=== PATIENT | female | born 1995 | race Two or more races ===

== ENCOUNTER 2018-05-01 08:09 | Day surgery (SDC) | payer OTHER ==
--- NOTE | 2018-04-24 | Pre-op HX & Phy Repo 2 SIG ---
DATE OF ADMISSION: 05/01/2018 HISTORY OF PRESENT ILLNESS: This is a 22-year-old female, 0, para 0, who presented to our office for the first time in September 2017. At this time, her main complaints were severe cramps on menstrual periods necessitating taking different pain medication. The patient was placed on control pills in order to bring under control dysmenorrhea; however, no improvement. Ultrasound revealed presence of polycystic ovaries and a cystic structure on the ovaries, more likely represents endometriosis. Due to the fact that the patient's condition getting worse and dysmenorrhea became even more prominent plus she started complaining of lower abdominal pain in between periods, a decision was made to take the patient for laparoscopy. Surgery was discussed with the patient, and all possible side effects and complications were explained as well as the benefits. PREVIOUS MEDICAL HISTORY: Includes bronchial asthma at age 16 or 17. Otherwise, no problems with heart, lungs, liver, or kidneys. HOSPITALIZATIONS: None. SOCIAL HISTORY: Tobacco, does not smoke. Alcohol, does not drink. PAST SURGICAL HISTORY: None. REVIEW OF SYSTEMS: Noncontributory besides complaints mentioned above. PHYSICAL EXAMINATION: GENERAL: Reveals well-developed, well-nourished female, in no acute distress. VITAL SIGNS: Stable. Blood pressure 110/60, respirations 16, and temperature 98.6. SKIN: No lesions. HEENT: Head: Normocephalic and atraumatic. Eyes: Pupils are reactive to light and accommodation. Ears: Tympanic membranes intact. Mouth: Normal , good hygiene. LUNGS: Clear to percussion and auscultation. HEART: Rate and rhythm are regular. S1 and S2. BREASTS: No masses. Nipples without discharge. ABDOMEN: Soft, nontender. Bowel sounds are present. Costovertebral angle is nontender. PELVIC: Revealed Bartholin, urethral, and [place] glands within normal limits. Vulva and vagina, no lesions. Cervix closed. Uterus, normal in size, shape, and position. Adnexa, no masses appreciated. No tenderness. IMPRESSION: 1. Severe dysmenorrhea. 2. Lower abdominal pain. 3. Endometriosis. PLAN: Pelviscopy and hysterectomy. Melanie Quesada M.D. DR: Jessica JOB#: [id number] CC:
--- NOTE | 2018-04-29 03:45 | Pre-op HX & Phy Repo 2 SIG ---
DATE OF ADMISSION: 05/01/2018 HISTORY OF PRESENT ILLNESS: This is a 23-year-old female, 0, para 0, who was seen on the first occasion on April 25 for abdominal pain. At that time, the patient was complaining of left lower abdominal pain, severe cramps on menstrual period, not controlled with control pills and nonsteroidal anti-inflammatory medication. The patient denies pelvic inflammatory disease. The patient denies sexually transmitted diseases. Pap smear is class 1. She does not smoke. She does not drink. PREVIOUS MEDICAL HISTORY: She denies heart disease, lung disease, liver disease. Tobacco, does not smoke. Alcohol, does not drink. Includes recently under control and anemia. SURGERIES: None. REVIEW OF SYSTEMS: Noncontributory besides complaints mentioned above. PHYSICAL EXAMINATION: GENERAL: Reveals well-developed and well-nourished white female, in no acute distress. VITAL SIGNS: Stable. Temperature 98.6, respirations 16, blood pressure 100/60. SKIN: Normal color. No lesions. HEENT: Head normocephalic and atraumatic. Eyes, pupils reactive to accommodation. Ears, tympanic membranes intact. Mouth, good hygiene. NECK: Lymph nodes not palpable. BREASTS: No masses palpable. Nipples without discharge. LUNGS: Clear to percussion and auscultation. HEART: S1 and S2. ABDOMEN: Soft, nontender. Bowel sounds present. Costovertebral angles nontender. PELVIC: Revealed Bartholin, urethral, [place] glands within normal limits. Vulva and vagina, no lesions. Cervix closed. Uterus slightly enlarged. Both adnexal area tender. Pap smear reviewed. Uterus, normal size. Right ovary, chocolate cyst present. Left ovary, multicystic and . LABORATORY DATA: WBC 8.5, RBC 4.2, hemoglobin 13.3, hematocrit 39. She is blood type A-positive. Test of negative. Her studies normal. IMPRESSION: 1. Lower abdominal pain. 2. Severe dyspareunia. 3. Dysmenorrhea. 4. Endometriosis. PLAN: CO2 pelviscopy, cystectomy, and hysteroscopy. Melanie Quesada M.D. DR: Domonique JOB#: [id number] CC:
[~2018-05-01] VITALS: Ht 175.3 cm; Wt 56.7 kg
[2018-05-01] VITALS (11 sets, daily range): BP systolic 97–130; BP diastolic 48–64
[~2018-05-01 08:09] MED LIST: cefOXitin Sod 2 GM in D5W 55 ML IVPB ONE
[2018-05-01] MEDS ORDERED: NKM (08:56)
[2018-05-01] MEDS ORDERED: Ropivacaine 5mg/ml Vial 30ml INJ ONE (09:27)
[2018-05-01] MEDS ORDERED: ProvayBlue 5mg/ml 10ml amp INJ SCH (09:30)
--- NOTE | 2018-05-01 09:46 | Anethesia Preoperative Eval ---
Anesthesia Pre-op PMH/ROS General Date of Evaluation: May 01, 2018 Time of Evaluation: 09:51 Anesthesiologist: Senait ASA Score: ASA 2 Mallampati Score Class I : Soft palate, uvula, fauces, pillars visible Class II: Soft palate, uvula, fauces visible Class III: Soft palate, base of uvula visible Class IV: Only hard plate visible Mallampati Classification: Class I Surgeon: Sangita Diagnosis: Abd Pain Surgical Procedure: Laparoscopic Right Ovarian Cystectomy, CO2 Laser, D&C, Pelviscopy Anesthesia History: none Family History: no anesthesia problems Allergies: Coded Allergies: No Known Allergies (Unverified , 04/30/18) Medications: see eMAR Patient NPO?: Yes Past Medical History Pulmonary: Reports: asthma Gastrointestinal/Genitourinary: Reports: other - IBS Anesthesia Pre-op Phys. Exam Physician Exam Last Vital Signs Date Time Temp Pulse Resp B/P (MAP) Pulse Ox O2 Delivery O2 Flow Rate FiO2 05/01/18 08:52 Room Air 05/01/18 08:42 98.3 75 16 111/62 100 98.3 Constitutional: NAD Neurologic: CN 2-12 intact Cardiovascular: RRR Respiratory: CTA Gastrointestinal: S/NT/ND Airway Exam Mallampati Score: Class I MO: full ROM: full Teeth: intact Anesthesia Pre-op A/P Labs Urine Test Test 05/01/18 08:30 Urine HCG, Qualitative Negative (NEGATIVE) Risk Assessment & Plan Assessment: ASA 2 Plan: GA, SED, GlideScope Go Pre-Antibiotics Dru Gram Ancef IV Given Within 1 Hr of Incision: Yes Time Given: 10:06 Luiz Sapp MD May 01, 2018 09:46
--- NOTE | 2018-05-01 09:47 | Immediate Post-Op Evaluation ---
Immediate Post-Op Evalulation Immediate Post-Op Evalulation Procedure: Laparoscopic Right Ovarian Cystectomy, CO2 Laser, D&C, Pelviscopy Date of Evaluation: May 01, 2018 Time of Evaluation: 12:05 IV Fluids: 500 LR Blood Products: 0 Estimated Blood Loss: 10 Urinary Output: 0 Blood Pressure Systolic: 97 Blood Pressure Diastolic: 48 Pulse Rate: 79 Respiratory Rate: 16 O2 Sat by Pulse Oximetry: 100 Temperature (Fahrenheit): 97.4 Pain Score (1-10): 2 Nausea: No Vomiting: No Complications 0 Patient Status: awake, reacts, patent, extubated, none Hydration Status: adequate Dru Gram Ancef IV Given Within 1 Hr of Incision: Yes Time Given: 10:06 Luiz Sapp MD May 01, 2018 09:47
[2018-05-01] MEDS ORDERED: Dexamethasone 4mg/ml vial ONE (09:57)
[2018-05-01] MEDS ORDERED: Lidocaine 1% MPF 10mg/ml 5ml ONE (09:57)
[2018-05-01] MEDS ORDERED: fentaNYL 100 mcg/2 mL IV ONE ×2 (10:02→12:43)
--- NOTE | 2018-05-01 10:11 | Pre-Procedure Note/Attestation ---
Pre-Procedure Note/Attestation Complete Prior to Procedure Planned Procedure: right Procedure Narrative: Video pelviscopy, Hysteroscopy, D&C, ovarian cystectomy, possible treatment of endometriosis Indications for Procedure Pre-Operative Diagnosis: Pelvic Pain, Right Ovarian Cyst Attestation I attest that I discussed the nature of the procedure; its benefits; risks and complications; and alternatives (and the risks and benefits of such alternatives ), prior to the procedure, with the patient (or the patient's legal district representative). I attest that, if there was a reasonable possibility of needing a blood transfusion, the patient (or the patient's legal district representative) was given the [place] Department of Health Services standardized written summary, pursuant to the [place] Blood Safety Act ([place] Health and Safety Code # 1645, as amended). I attest that I re-evaluated the patient just prior to the surgery and that there has been no change in the patient's H&P, except as documented below:NONE MARIANNA YTAES May 01, 2018 10:11
[2018-05-01] MEDS ORDERED: Glycopyrrolate 0.2mg/ml 1ml Vial ONE (11:20)
--- NOTE | 2018-05-01 11:34 | Pre-Procedure Note/Attestation ---
Pre-Procedure Note/Attestation Indications for Procedure Pre-Operative Diagnosis: Pelvic Pain, Ovarian Cyst Attestation I attest that I discussed the nature of the procedure; its benefits; risks and complications; and alternatives (and the risks and benefits of such alternatives ), prior to the procedure, with the patient (or the patient's legal event sales representative). I attest that, if there was a reasonable possibility of needing a blood transfusion, the patient (or the patient's legal event sales representative) was given the [facility] standardized written summary, pursuant to the [place] Blood Safety Act ([place] Health and Safety Code # 1645, as amended). I attest that I re-evaluated the patient just prior to the surgery and that there has been no change in the patient's H&P, except as documented below: MARIANNA YATES May 01, 2018 11:34
--- NOTE | 2018-05-01 11:37 | Brief Operative Note ---
Immediate Post Operative Note Operative Note Pre-op Diagnosis: Pelvic Pain, Ovarian Cyst Post-op Diagnosis: same as pre-op plus - Bilateral Multiple Ovarian Cysts - PCO Findings: consistent w/pre-op dx studies Surgeon: Marianna Yates MD Optical Glass Etcher: Deborah Oliveira MD Anesthesiologist: Luiz Sapp MD Anesthesia: general Specimen: yes - Rght Ovarian Cyst Complications: none Condition: stable Fluids: LR @ 125 cc/hr Estimated Blood Loss: minimal Implant(s) used?: No - Ovarian Cyst, MARIANNA YATES May 01, 2018 11:37
--- NOTE | 2018-05-01 11:53 | 48 Hour Post Anesthesia Eval ---
Post Anesthesia Evaluation Procedure: Laparoscopic Right Ovarian Cystectomy, CO2 Laser, D&C, Pelviscopy Date of Evaluation: May 01, 2018 Time of Evaluation: 14:13 Blood Pressure Systolic: 102 0: 56 Pulse Rate: 78 Respiratory Rate: 18 Temperature (Fahrenheit): 98.4 O2 Sat by Pulse Oximetry: 100 Airway: patent Nausea: No Vomiting: No Pain Intensity: 2 Hydration Status: adequate Cardiopulmonary Status: Stable Mental Status/LOC: patient returned to baseline Follow-up Care/Observations: 0 Post-Anesthesia Complications: 0 Follow-up care needed: ready to discharge Luiz Sapp MD May 01, 2018 11:53
[2018-05-01] MEDS ORDERED: LR 1000ml 1,000 ML IVLG SCH (12:40)
[2018-05-01] MEDS ORDERED: HYDROcodone/Acetamin 7.5/325 tab ORAL PRN (12:45)
[2018-05-01] MEDS ORDERED: Metoclopramide 10mg/2ml Inj IVP PRN (12:45)
[2018-05-01] MEDS ORDERED: Acetaminophen (Non formulary) 100 ML IV ONE (12:45)
[2018-05-01] MEDS ORDERED: Hydromorphone 0.5mg/0.5ml inj IVP PRN (12:45)
[2018-05-01] MEDS ORDERED: oxyCODONE HCL/Acetaminophen 5/325mg ORAL PRN (12:45)
[2018-05-01] MEDS ORDERED: Ketorolac 30mg Inj IV PRN ×2 (12:45)
[2018-05-01] MEDS ORDERED: LORazepam Inj 2mg/ml 1ml IV PRN (12:45)
[2018-05-01] MEDS ORDERED: Midazolam 2mg/2ml Inj IVP PRN (12:45)
[2018-05-01] MEDS ORDERED: Meperidine 50mg/ml Inj(FOR RIGORS ONLY) IVP PRN (12:45)
[2018-05-01] MEDS ORDERED: Atropine Sulfate 0.4mg/ml inj IVP PRN (12:45)
[2018-05-01] MEDS ORDERED: DiphenhydrAMINE 50mg/ml Inj IVP PRN (12:45)
[2018-05-01] MEDS ORDERED: Norco 5mg/325mg tab ORAL PRN (12:45)
[2018-05-01] MEDS ORDERED: fentaNYL 100 mcg/2 mL IV PRN (12:45)
--- NOTE | 2018-05-07 17:00 | Operative Note - Dictated ---
DATE OF OPERATION: 05/01/2018 PREOPERATIVE DIAGNOSIS: Left ovarian cyst. POSTOPERATIVE DIAGNOSIS: Left ovarian cyst plus polycystic ovary bilaterally. PROCEDURE PERFORMED: 1. Left ovarian cystectomy and bilateral coagulation and resection of polycystic ovary, dilatation and curettage with video hysteroscopy. SURGEON: Jaspal Quesada M.D. PRIMARY SCHOOL TEACHER: Dr. Oliveira. ANESTHESIOLOGIST: Dr. Luiz Sapp. ANESTHESIA TYPE: General endotracheal. PROCEDURE IN DETAIL: After appropriate consents were signed, the patient was brought to the operating room, placed on table in supine position. General endotracheal anesthesia was induced without complication. The patient was then placed in the dorsal lithotomy position. Perineum, vagina, and abdomen were prepped and draped in the usual fashion for the procedure. The patient was then examined under anesthesia and the uterus appeared to be approximately normal-sized and the video hysteroscopy was initiated with the uterine cavity evaluated and both tubal ostia were visualized. There did not appear to be submucosal fibroids or endometrial polyps in the cavity. Hysteroscopy then continued to perform the endocervical curettage and endometrial curettage. After the curettage was performed, the uterine manipulator was placed and the procedure continued at its abdominal portion. An umbilical incision was made. A Veress needle was advanced and the abdomen was insufflated with 15 mmHg pressure. At this time, 10 mm was placed in the umbilicus and 2 additional trocars were placed in the lower abdomen and left lower abdomen. At this time, the procedure continued with evaluating the pelvis. The ovaries were somewhat enlarged, however, the left ovary contained this cystic structure which was being well visualized in the left distal pole of the left ovary. The ovarian capsule was opened and the cyst was extracted using traction-countertraction technique, and pressure on the ovary. Once this cystic structure was completely removed, it was removed from the field to be submitted to pathology for evaluation. The cystic structure appeared fully hemostatic. At this time, the procedure continued with evaluation of the pelvis and complete hemostasis was achieved on the left side. The additional cystic structures that were although smaller, double found in the left ovary. These cystic structures were punctured to assure that no endometrioma or dermoid cysts were identified. The ovary was also evaluated and also found to contain multiple cystic structures. The right ovary was also punctured in multiple areas to ensure that these were fully polycystic ovarian structures. At this time, the pelvis was once again evaluated and found to be within normal limits. There did not appear to be any additional pathology. The patient's abdomen was evaluated while the trocars were removed and the puncture sites were found to be completely hemostatic. The patient's incisions were closed using #0 Vicryl suture at the fascial layer and Steri-Strips and benzoin at the skin layer. She was placed in the supine position and awakened from general anesthesia. She tolerated the procedure very well. Jaspal Quesada M.D. DR: Corrine JOB#: [id number] CC:
== END 2018-05-01 14:00 | disposition home or self-care (01) ==
LOC: SUR 08:09
DX: N83.12 Corpus luteum cyst of left ovary (principal); E28.2 Polycystic ovarian syndrome; J45.909 Unspecified asthma, uncomplicated; K58.9 Irritable bowel syndrome, unspecified
CPT/HCPCS: 58558; 58662; 81025; J0690; J1100; J2175; J2250; J2405; J2795; J3010; 94003; 94150

== ENCOUNTER 2019-10-06 05:02 | Emergency (ER) | payer OTHER ==
[~2019-10-06] VITALS: Ht 177.8 cm; Wt 69.4 kg
[~2019-10-06 05:02] MED LIST changes: +NKM; -cefOXitin Sod 2 GM in D5W 55 ML IVPB ONE
--- NOTE | 2019-10-06 05:20 | NUR ---
ED Nurse Note: Pt ambulated to ED from home c/o painful cyst on labia, pt had it drained on friday at a clinic and was placed on antibiotics. Pt reports pain and swelling has increased. VSS. Pt is A&Ox4.
[2019-10-06 05:22] VITALS: BP 130/67
[2019-10-06] MEDS ORDERED: Lidocaine 1% 10mg/ml/EPI 0.01mg/ml 30ml INJ ONE (05:45)
[2019-10-06] MEDS ORDERED: Lidocaine HCl 2% Jelly 6ml Tube TOPIC ONE (05:45)
--- NOTE | 2019-10-06 05:50 | Emergency Room Report ---
History of Present Illness General Chief Complaint: Female Urogenital Problems Source: Patient Present Illness HPI Patient has had procedures for drainage of Bartholin cysts in the past. On Friday she saw her SANDWICH HAND. Apparently the SANDWICH HAND drained it. It has become swollen again. Gauze was placed initially. After that now the gauze was taken out on Friday. She has been taking Bactrim twice a day. Initially she had fever and chills however this is improved. She is taking Tylenol. There is no dysuria. Her last menstruation was on September 11 and normal for her. The pain is rated 8/10. Its aching in sharp. There is swelling and redness. She states that these recur after sexual activity. She does shave. No dysuria. No change in bowels. Allergies: Coded Allergies: No Known Allergies (Unverified , 04/30/18) COVID-19 Screening Contact w/high risk pt: No Recent Travel to affected area: No Experienced COVID-19 symptoms?: No Patient History Social History: Reports: alcohol use; Denies: smoking - Former Social History Narrative Student Last Menstrual Period: 09/12/19 Now: No Reviewed Nursing Documentation: PMH: Agreed; PSxH: Agreed Nursing Documentation-PMH Hx Cardiac Problems: No Hx Asthma: Yes Hx Cancer: No Hx Gastrointestinal Problems: Yes - IBS Hx Neurological Problems: No Review of Systems Constitutional: Reports: see HPI Musculoskeletal: Denies: joint pain Skin: Reports: see HPI Physical Exam Vital Signs Date Time Temp Pulse Resp B/P (MAP) Pulse Ox O2 Delivery O2 Flow Rate FiO2 10/06/19 05:08 98.1 117 19 130/67 (88) 97 Room Air Sp02 EP Interpretation: reviewed, normal General Appearance: well appearing, no apparent distress, GCS 15 Head: normocephalic Eyes: bilateral eye normal inspection, bilateral eye PERRL ENT: moist mucus membranes Respiratory: normal inspection Cardiovascular #1: regular rate, rhythm Cardiovascular #2: 2+ radial (R) Gastrointestinal: normal inspection Genitourinary: other - Bartholin cyst with erythema and fluctuance right labia majora Musculoskeletal: gait/station normal Neurologic: alert, grossly normal Psychiatric: mood/affect normal Skin: normal color, other - Genitals Procedures Incision and Drainage Incision and Drainage : Consent: Verbal Blade Size: 11 I & D Procedure: betadine prep, sterile drapes applied, sterile dressing applied, gauze wick placed Wound Location: other - Right labia majora Wound's Depth, Shape: superficial Wound Explored: contaminated - Pus expressed Irrigated w/ Saline (ccs): 20 Anesthesia: Lidocaine w/ Epi Volume Anesthetic (ccs): 3 Patient Tolerated: Well Complications: None Progress Word catheter inserted after drainage. Tolerated well with decreased pain. Medical Decision Making Diagnostic Impression: Primary Impression: Bartholin cyst ER Course Patient presents with right Bartholin cyst. Incision and drainage indicated. The patient is nontoxic at this time. Please see procedure note. Bartholin cyst drained and irrigated. Word catheter inserted. Pain greatly decreased. Discussed treatment plan with patient. Patient stable for outpatient observation and treatment. Last Vital Signs Date Time Temp Pulse Resp B/P (MAP) Pulse Ox O2 Delivery O2 Flow Rate FiO2 10/06/19 06:55 98.1 19 130/67 97 Room Air 10/06/19 05:08 117 Upon discharge patient's pulse rate improved. These appear exactly like initial vital signs. Status: improved Disposition: HOME, SELF-CARE Condition: Improved Scripts Ibuprofen* (MOTRIN*) 600 Mg Tablet 600 MG ORAL Q6H PRN for For Pain, #16 TAB Prov: Lakhwinder Waters MD 10/06/19 Tramadol Hcl* (ULTRAM*) 50 Mg Tablet 50 MG ORAL Q6H PRN for For Pain, #8 TAB 0 Refills Prov: Lakhwinder Waters MD 10/06/19 Referrals: NOT CHOSEN IPA/,REFERRING (PCP) Lakhwinder Waters MD Oct 06, 2019 05:50
--- NOTE | 2019-10-06 06:45 | NUR ---
ED Nurse Note: ERMD performed I&D, dained 15ml pus and irrigated site, placed Word catheter, pt tolerated well. Pt education provided, verbalilzed understanding
[2019-10-06] MEDS ORDERED: TRAMADOL HCL50 MG ORAL (06:50)
[2019-10-06] MEDS ORDERED: IBUPROFEN600 MG ORAL (06:50)
[2019-10-06 06:55] VITALS: BP 130/67
--- NOTE | 2019-10-06 06:55 | NUR ---
ER DISCHARGE NOTE: Patient is cleared to be discharged per ERMD, pt is aox4, on room air, with stable vital signs. pt was given dc and prescription instructions, pt was able to verbalize understanding, pt id band removed. pt is able to ambulate with steady gait. pt took all belongings.
== END 2019-10-06 06:55 | disposition home or self-care (01) ==
LOC: EMR 05:40
DX: N75.0 Cyst of Bartholin's gland (principal)
CPT/HCPCS: 99283